=== PATIENT | female | born 1965 | race Caucasian/White ===

== ENCOUNTER 2016-08-12 21:01 | Emergency (ER) | payer OTHER ==
[2016-08-12 21:06] VITALS: RESP 16; TEMP 98.1; O2SAT 97
--- NOTE | 2016-08-12 22:44 | EDPHY ---
H & P Smoking Status: Never smoked Time Seen by Provider: 08/12/16 21:43 HPI/ROS: CHIEF COMPLAINT: Right hand pain HISTORY OF PRESENT ILLNESS: 51-year-old female presents emergency department complaining of right hand pain. Patient reports a jug of laundry detergent fell onto her hand. She is [id number], denies numbness or tingling in her hand, denies other complaints. (Flora Moore) Physical Exam: GEN: Awake, alert, oriented, no acute distress RESP: nl resp effort MSK: Right hand hematoma over 4th metacarpal, tenderness to palpation and swelling over proximal 4th phalanx. Sensation intact to light touch, cap refill less than 2 seconds, no tenderness to wrist, no elbow pain. SKIN: No break in skin (Flora Moore) Constitutional: Initial Vital Signs Temperature (C) 36.7 C 08/12/16 21:04 Heart Rate 82 08/12/16 21:04 Respiratory Rate 16 08/12/16 21:04 Blood Pressure 142/86 H 08/12/16 21:04 O2 Sat (%) 97 08/12/16 21:04 O2 Delivery Mode Room Air Allergies/Adverse Reactions: amoxicillin Allergy (Verified 08/12/16 21:03) Home Medications: Medication Instructions Recorded NK [No Known Home Meds] 08/12/16 MDM/Departure - [facility] [place] Imaging: I viewed and interpreted images myself - [facility] [place] Imaging Results: Imaging Impressions Hand X-Ray 08/12/16 21:03 Impression: Suspect nondisplaced oblique fracture of the right 4th finger proximal phalanx. Procedures: A ulnar gutter splint to right hand was applied. After application of the splint, I returned and re-examined the patient. The splint was adequately immobilizing the joint. The patients circulation and sensation were intact distal to the splint. (Flora Moore) ED Course/Re-evaluation: The patient was evaluated and managed by the physician's preschool assistant teacher. My cosignature indicates that I reviewed the chart and I agree with the findings and plan of care as documented. I am the secondary supervising physician. ( Shelia Abreu) - Depart Disposition: Home, Routine, Self-Care Clinical Impression: Proximal phalanx fracture of finger Qualifiers: Encounter type: initial encounter Finger: ring finger Fracture type: closed Fracture alignment: nondisplaced Laterality: right Qualified Code(s): S62.644A - Nondisplaced fracture of proximal phalanx of right ring finger, initial encounter for closed fracture Condition: Good Instructions: Finger Fracture (ED) Additional Instructions: Rest, ice, elevate, take 600mg of ibuprofen every 8 hours with food for 3-5 days as needed for pain and swelling. Keep splint in place. Follow up with an orthopedist or hand surgeon on return home in the next 5-7 days. Return to the emergency department for any numbness, tingling, discoloration of you limb or other concerns. Referrals: SHAUN MARIE [Other] - As per Instructions
[2016-08-12 23:13] VITALS: BP 117/85; PULSE 85
== END 2016-08-12 23:13 | disposition home or self-care (01) ==
DX: S62.644A Nondisplaced fracture of proximal phalanx of right ring finger, initial encounter for closed fracture (principal); W20.8XXA Other cause of strike by thrown, projected or falling object, initial encounter